=== PATIENT | male | born 1985 | race Caucasian/White ===

== ENCOUNTER → 2016-06-28 | Outpatient (CLI) | payer MEDICARE, MEDICAID ==
[~2016-06-28] MED LIST: ?ANTIBIOTIC; AC325T PO; ACET-789 PO; ALB.5NB20 INH; ALBU0.8322 IH; ALBU17AE23 IH; ALBU17AE3 IH; ALBU2.5V4 IH; ALBU2.5V52 INH; ALBU8.5H2 IH; ALBU8.5H2 INH; AMOX875T2 PO; AMOXICILLIN; AMPH20TA2 PO; ATOR20TA66 PO; ATOR40TA PO; AZIT250T PO; AZIT250T5 PO; BUDE6HFA INH; BUSP15TA60 PO; CATHETER FLUSH 10 ML SYR IV PRN; CEFD300C3 PO; CEFU250T PO; CEPH500C PO; CHLO200T9 PO; CITA40TA19 PO; CLON1TAB3 PO; DOXY100C2 PO; FAMO20TA5 PO; FENO135C4 PO; FLUT1AER IH; FLUT1BLS IH; FLUT1DIS26 IH; GUAI5SYR PO; HYDR-3454 PO; HYDR-3812 PO; HYDR-3816 PO; HYDR-3874 PO; HYDR115S2 PO; HYDR1TAB PO; HYDR25CA5 PO; IBP600T1 PO; IBP800T PO; IBUP-1773 PO; IOHEXOL 350 MG/ML 150 ML (OMNIPAQUE 350) VIAL IV ONE; LANS30CA PO; LEVO500T69 PO; LEVO500T78 PO; LEVO750T24; LEVO750T6 PO; LITH300C; LITH300C PO; LORA-794 PO; LORA0.5T PO; MELA1TAB20 PO; MELATONIN; METH4TAB PO; MUPI22OI TP; MUPI22OI2 TP; MUPI22OI29 TOP; NAPR550T PO; NS 100 ML (IVPB) BAG IV ONE; ONDAN4ODT PO; PANT40SU PO; PRD20T PO; PRD50T PO; PRED10TA; PRED5TAB PO; PROM5SYR PO; QUET200T PO; QUET200T28 PO; QUET200T57 PO; QUET300T PO; QUET50TA PO; RT-ALBUINH IH; SULF-222 PO; SULF1TAB35 PO; TRAZ-144 PO; TRAZ150T60 PO; Z PACK; ZIPR40CA12 PO; ZLP10T PO; ZYPREXA
--- OUTSIDE RECORDS SUMMARY | 2016-06-28 10:03 | XMS REPORT | Continuity of Care Document ---
Author Author [facility] Organization [facility] Address Unknown Phone Unavailable Care Team Providers Care Lime Kiln Worker Name Role Phone Self, Referral PCP Unavailable Source Comments Some departments are not documenting in the electronic medical record. If you do not see the information that you expected, contact Release of Information in the Health Information Management department at [phone] for further assistance in locating additional records.[facility] Active Allergies and Adverse Reactions Allergen Noted Date Severity Reactions Comments Bee 07/11/2012 UNKNOWN Current Medications Prescription Sig. Disp. Refills Start End Date Status Date chlorproMAZINE Take 10 mg by mouth three Active (THORAZINE) 10 mg tablet times daily. QUETIAPINE FUMARATE Take by mouth. Active (SEROQUEL PO) ZOLPIDEM TARTRATE (AMBIEN Take by mouth. Active PO) amphetamine-dextroampheta Take 10 mg by mouth every Active mine XR (ADDERALL XR) 10 morning mg capsule QUETIAPINE FUMARATE Take by mouth. Active (SEROQUEL XR PO) Active Problems Not on file Social History Tobacco Use Types Packs/Day Years Used Date Current Every Day Smoker Cigarettes 0.5 10 Tobacco Cessation: Ready to Quit: No Comments: Alcohol Use Drinks/Week oz/Week Comments Yes rare Plan of Care Health Maintenance Due Date Last Done Comments Physical (Comprehensive) 10/25/1991 Exam Pertussis Vaccine 10/25/1995 Tetanus Vaccine 2001 Influenza Vaccine 02/18/2015 Results from Last 3 Months Not on file
--- NOTE | 2016-06-28 13:22 | Diagnostic Imaging Report ---
PROCEDURE: CT angiography of the chest with contrast. TECHNIQUE: Multiple contiguous axial images were obtained through the chest after uneventful bolus administration of intravenous contrast. Reconstructed CTA MIP acquisitions were also performed. INDICATION: Chest pain, weight loss, shortness of breath, COPD, 20 years of smoking, previous heart surgery. CONTRAST: 125 mL of Omnipaque 350 was given intravenously. COMPARISON STUDY: Noncontrast CT scan of the chest from October 09. FINDINGS: No pulmonary emboli or aortic aneurysm or dissection is present. There is a normal takeoff of the great vessels from the aortic arch. 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 The heart size is normal. No abnormal adenopathy is present. The lungs are clear. There are no pulmonary nodules. No pleural effusions are present. The visualized portions of the abdomen appear unremarkable. The osseous structures demonstrate minimal degenerative changes. IMPRESSION: There are no acute findings. Dictated by: Dictated on workstation # [id number]
== END ==
LOC: RAD 10:00
PROVIDERS: ATTEND Internal Medicine Critical Care Medicine
DX: J44.9 Chronic obstructive pulmonary disease, unspecified (principal); J45.909 Unspecified asthma, uncomplicated; R06.00 Dyspnea, unspecified; G47.34 Idiopathic sleep related nonobstructive alveolar hypoventilation
CPT/HCPCS: 71275

== ENCOUNTER → 2016-07-27 | Outpatient (CLI) | payer MEDICARE, MEDICAID ==
[~2016-07-27] MED LIST changes: -CATHETER FLUSH 10 ML SYR IV PRN; -IOHEXOL 350 MG/ML 150 ML (OMNIPAQUE 350) VIAL IV ONE; -NS 100 ML (IVPB) BAG IV ONE
--- OUTSIDE RECORDS SUMMARY | 2016-07-27 09:07 | XMS REPORT | Continuity of Care Document ---
Author Author [facility] Organization [facility] Address Unknown Phone Unavailable Care Team Providers Care Director Life Insurance Name Role Phone Self, Referral PCP Unavailable Source Comments Some departments are not documenting in the electronic medical record. If you do not see the information that you expected, contact Release of Information in the Health Information Management department at [phone] for further assistance in locating additional records.[facility] Active Allergies and Adverse Reactions Allergen [...]
[2016-07-27 09:34] LABS: ABG BASE EXCESS -1.5 MMOL/L (-2.5-2.5); ABG HCO3 22 MMOL/L (23-27); ABG OXYGEN SATURATION 95 % (94-100); ABG PCO2 36 MMHG (35-45); ABG PH 7.42 (7.37-7.43); ABG PO2 67 MMHG (79-93); ABG TCO2 23.5 MMOL/L (21.0-31.0); ALLENS TEST POSITIVE; PATIENT TEMP 98.3
== END ==
LOC: RT 09:02
PROVIDERS: ATTEND Internal Medicine Critical Care Medicine
DX: J44.9 Chronic obstructive pulmonary disease, unspecified (principal); J45.909 Unspecified asthma, uncomplicated; R06.00 Dyspnea, unspecified; G47.34 Idiopathic sleep related nonobstructive alveolar hypoventilation
CPT/HCPCS: 82805

== ENCOUNTER 2016-07-29 10:00 | Outpatient (RCR) | payer MEDICARE, MEDICAID ==
--- OUTSIDE RECORDS SUMMARY | 2016-07-05 10:06 | XMS REPORT | Continuity of Care Document ---
Author Author [facility] Organization [facility] Address Unknown Phone Unavailable Care Team Providers Care Preschool Teacher Assistant Name Role Phone Self, Referral PCP Unavailable Source Comments Some departments are not documenting in the electronic medical record. If you do not see the information that you expected, contact Release of Information in the Health Information Management department at [phone] for further assistance in locating additional records.[facility] Active Allergies and Adverse Reactions Allergen Noted [...]
== END 2016-10-03 | disposition home or self-care (01) ==
LOC: PULM 10:00
PROVIDERS: ATTEND Internal Medicine Critical Care Medicine
DX: J44.9 Chronic obstructive pulmonary disease, unspecified (principal); J45.909 Unspecified asthma, uncomplicated; R06.00 Dyspnea, unspecified; G47.34 Idiopathic sleep related nonobstructive alveolar hypoventilation
CPT/HCPCS: 99211

== ENCOUNTER 2016-09-01 14:13 | Emergency (ER) | payer MEDICARE, MEDICAID ==
[~2016-09-01] VITALS: Ht 175.3 cm; Wt 82.1 kg
--- OUTSIDE RECORDS SUMMARY | 2016-09-01 14:20 | XMS REPORT | Continuity of Care Document ---
Author Author [facility] Organization [facility] Address Unknown Phone Unavailable Care Team Providers Care Charging Board Operator Name Role Phone Self, Referral PCP Unavailable Source Comments Some departments are not documenting in the electronic medical record. If you do not see the information that you expected, contact Release of Information in the Health Information Management department at [phone] for further assistance in locating additional records.[facility] Active Allergies and Adverse Reactions Allergen [...]
[2016-09-01 14:39] LABS: BASOPHILS % (AUTO) 0 % (0-10); EOSINOPHILS % (AUTO) 1 % (0-10); LYMPHOCYTES # (AUTO) 2.1 X 10^3 (1.0-4.0); LYMPHOCYTES % (AUTO) 39 % (12-44); MEAN CORPUSCULAR HEMOGLOBIN 30 PG (25-34); MEAN CORPUSCULAR HGB CONC 36 G/DL (32-36); MEAN CORPUSCULAR VOLUME 83 FL (80-99); MEAN PLATELET VOLUME 10.7 FL (7.4-10.4); MONOCYTES # (AUTO) 0.4 X 10^3 (0.0-1.0); MONOCYTES % (AUTO) 7 % (0-12); NEUTROPHILS # (AUTO) 2.8 X 10^3 (1.8-7.8); NEUTROPHILS % (AUTO) 53 % (42-75); PLATELET COUNT 178 10^3/uL (130-400); RED BLOOD COUNT 4.98 10^6/uL (4.35-5.85); RED CELL DISTRIBUTION WIDTH 13.3 % (10.0-14.5); WHITE BLOOD COUNT 5.3 10^3/uL (4.3-11.0)
[2016-09-01] MEDS ORDERED: NICOTINE 21 MG (NICODERM) PATCH TD ONE (14:45)
[2016-09-01] MEDS ORDERED: LORazepam INJ 2 MG/ML (ATIVAN) VIAL IVP ONE (14:45)
[2016-09-01] MEDS ORDERED: WATER (STERILE) FOR INJECTION 20 ML ONE (14:58)
[2016-09-01] MEDS ORDERED: ZIPRASIDONE 20 MG INJ (GEODON) VIAL IM ONE (15:00)
[2016-09-01 15:02] LABS: ALANINE AMINOTRANSFERASE 15 U/L (0-55); ALBUMIN 4.3 G/DL (3.2-4.5); ALCOHOL 200 MG/DL (<10); ANION GAP 11 MMOL/L (5-14); ASPARTATE AMINO TRANSFERASE 17 U/L (5-34); BILIRUBIN,TOTAL 0.3 MG/DL (0.1-1.0); BLOOD UREA NITROGEN 9 MG/DL (7-18); BUN/CREATININE RATIO 9; CALCIUM 10.2 MG/DL (8.5-10.1); CARBON DIOXIDE 22 MMOL/L (21-32); CHLORIDE 108 MMOL/L (98-107); CREATININE SERUM 1.05 MG/DL (0.60-1.30); GFR ESTIMATED > 60; GLUCOSE 110 MG/DL (70-105); SALICYLATE < 5.0 MG/DL (5.0-20.0); SODIUM 141 MMOL/L (135-145); TOTAL PROTEIN 6.9 G/DL (6.4-8.2)
[2016-09-01 15:06] LABS: ACETAMINOPHEN < 10 UG/ML (10-30)
[2016-09-01 15:25] VITALS: BP 0/0
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
== END 2016-09-01 15:25 | disposition left against medical advice (07) ==
LOC: EDUNIT# 14:13 → ER 14:16
DX: R45.851 Suicidal ideations (principal); F10.129 Alcohol abuse with intoxication, unspecified; F17.210 Nicotine dependence, cigarettes, uncomplicated; Y90.7 Blood alcohol level of 200-239 mg/100 ml; Z53.21 Procedure and treatment not carried out due to patient leaving prior to being seen by health care provider
CPT/HCPCS: 36415; 80053; 80320; 80329; 84443; 85025; 93005; 96372

== ENCOUNTER → 2017-09-05 | Outpatient (CLI) | payer MEDICARE, MEDICAID ==
[~2017-09-05] MED LIST changes: +ACHD5005 PO; +AZIT250T12 PO; -AZIT250T5 PO; -HYDR-3812 PO; +HYDR-3870 PO; -HYDR-3874 PO
== END ==
LOC: RAD 09:15
PROVIDERS: ATTEND Nurse Practitioner
DX: Z53.8 Procedure and treatment not carried out for other reasons (principal); S13.101A Dislocation of unspecified cervical vertebrae, initial encounter

== ENCOUNTER 2022-04-13 04:52 | Emergency (ER) | payer MEDICARE, MEDICAID ==
[~2022-04-13] VITALS: Ht 175.3 cm; Wt 77.0 kg
[~2022-04-13 04:52] MED LIST changes: +QUET200T29 PO; -QUET200T57 PO; -SULF1TAB35 PO; +SULF1TAB38 PO
[2022-04-13 05:04] VITALS: BP 139/92
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
[2022-04-13] MEDS ORDERED: KETOROLAC 60 MG/2 ML VIAL IM ONE (05:30)
== END 2022-04-13 05:32 | disposition left against medical advice (07) ==
LOC: EDUNIT# 04:52 → ER 04:56
DX: M54.2 Cervicalgia (principal); M79.601 Pain in right arm; F17.210 Nicotine dependence, cigarettes, uncomplicated; V49.50XA Passenger injured in collision with unspecified motor vehicles in traffic accident, initial encounter; Y92.410 Unspecified street and highway as the place of occurrence of the external cause
CPT/HCPCS: 99281

== ENCOUNTER 2022-07-12 16:05 | Emergency (ER) | payer MEDICARE, MEDICAID ==
[~2022-07-12] VITALS: Ht 177 cm; Wt 75.0 kg
[2022-07-12 16:24] VITALS: BP 139/89
[2022-07-12] MEDS ORDERED: RT-ALBUTEROL/IPRATROPIUM 3 ML (DUONEB) VIAL INH ONE (16:45)
[2022-07-12] MEDS ORDERED: predniSONE 20 MG TAB PO ONE (16:45)
--- NOTE | 2022-07-12 16:52 | ED General ---
General Chief Complaint: Cough/Cold/Flu Symptoms Stated Complaint: SOA - COUGH - CHILLS Nursing Triage Note: Patient has presented to ER with cc of short of breath, cough, and chills for the last 3 days. He has taken albuterol inhaler and albuterol breathing treatments for his shortness of breath. Source of Information: Patient (ESTELLEGAUDENCIO) History of Present Illness Date Seen by Provider: Jul 12, 2022 Time Seen by Provider: 04:30 Initial Comments 36yo M with h/o COPD, asthma, and PNA presents to the ED with c/o non-productive cough, nasal congestion, SOB, and chills that started 3 days ago. Pt states that he has also experienced posttussis syncopal events x3, the last episode being today prior to coming to ED. Pt states that he coughs so hard that he becomes lightheaded and "passes out"'. Pt denies head strike with syncopal events and states that he just "wakes up on the floor". Pt also notes his cough has caused associated chest wall pain and MARSHALL. Pt states that he had a nebulizer treatment prior to coming to the ED but denies relief of symptoms. Pt has 2L O2 prn that he normally uses nightly but has had to use it all day today. Pt states using the oxygen gives him some relief from his symptoms. Pt states that his son has experienced similar symptoms. Pt states that symptoms are similar to when he has had PNA. Pt denies fevers, nausea, vomiting, abd pain, diarrhea, dysuria, hematuria, or recent flu test. (GAUDENCIO MCCABE) Allergies and Home Medications Allergies Coded Allergies: No Known Drug Allergies (Unverified , 10/03/15) Patient Home Medication List Home Medication List Reviewed: Yes (GAUDENCIO MCCABE) Albuterol Sulfate (Albuterol Sulfate) 2.5 Mg/3 Ml Vial.neb, 2.5 MG IH Q4H PRN for SHORTNESS OF BREATH, (Reported) Entered as Reported by: THERESA GONZALES on 10/03/15 1046 Albuterol Sulfate (Ventolin Hfa) 18 Gm Hfa.aer.ad, 2 PUFF IH Q4H PRN for SHORTNESS OF BREATH, (Reported) Entered as Reported by: THERESA GONZALES on 10/03/15 1046 Atorvastatin Calcium (Atorvastatin Calcium) 20 Mg Tablet, 20 MG PO HS, (Reported) Entered as Reported by: THERESA GONZALES on 10/03/15 1033 Azithromycin (Azithromycin) 250 Mg Tablet, 250 MG PO DAILY Prescribed by: MONICA MIGUEL on 10/06/15 1154 Azithromycin (Zithromax) 250 Mg Tablet, 250 MG PO DAILY Prescribed by: SHANE RATLIFF on 06/15/16 165 Buspirone HCl (Buspirone HCl) 15 Mg Tablet, 15 MG PO TID PRN for ANXIETY, (Reported) Entered as Reported by: THERESA GONZALES on 10/03/15 1033 Cefdinir (Cefdinir) 300 Mg Capsule, 300 MG PO BID Prescribed by: TYRELL MENDEZ on 10/08/15 1228 Cefuroxime Axetil (Ceftin) 250 Mg Tablet, 250 MG PO BID, (Reported) Entered as Reported by: THERESA GONZALES on 10/03/15 1046 Famotidine (Famotidine) 20 Mg Tablet, 20 MG PO BID, (Reported) Entered as Reported by: THERESA GONZALES on 10/03/15 103 Fluticasone/Vilanterol (Breo Ellipta 100-25 Mcg INH) 1 Each Blst.w.dev, 1 PUFF IH DAILY, (Reported) Entered as Reported by: THERESA GONZALES on 10/03/15 1033 Guaifenesin/Dextromethorphan (Guaifenesin Dm Syrup) 5 Ml Syrup, 5-10 ML PO Q4H PRN for COUGH Prescribed by: SHANE RATLIFF on 06/15/16 165 Prednisone (Prednisone) 20 Mg Tab, 40 MG PO DAILY, (Reported) Entered as Reported by: THERESA GONZALES on 10/03/15 1046 Prednisone (Prednisone) 5 Mg Tablet, 5 MG PO UD Prescribed by: TYRELL MENDEZ on 10/08/15 1228 Quetiapine Fumarate (Quetiapine Fumarate) 200 Mg Tablet, 200 MG PO HS, (Reported) Entered as Reported by: THERESA GONZALES on 10/03/15 1033 Trazodone HCl (Oleptro ER) 150 Mg Tab.er.24h, 150 MG PO HS, (Reported) Entered as Reported by: THERESA GONZALES on 10/03/15 1033 Review of Systems Review of Systems Constitutional: chills; No fever EENTM: nose congestion; No eye pain Respiratory: cough, short of breath, wheezing Cardiovascular: chest pain ( secondary to cough), syncope (posttussis ) Gastrointestinal: No abdominal pain, No diarrhea, No nausea, No vomiting Genitourinary: No dysuria, No hematuria Musculoskeletal: no symptoms reported Skin: no symptoms reported Psychiatric/Neurological: No Symptoms Reported Hematologic/Lymphatic: No Symptoms Reported Immunological/Allergic: no symptoms reported (GAUDENCIO MCCABE) Past Bftubny-Dwjhqy-Dotmrq Hx Patient Social History Tobacco Use?: Yes Tobacco type used: Cigarettes Smoking Status: Current Everyday Smoker Use of E-Cig and/or Vaping dev: No Substance use?: No Alcohol Use?: No (h/o alcoholism ) Pt feels they are or have been: Unable to obtain (GAUDENCIO MCCABE) Immunizations Up To Date Tetanus Booster (TDap): Less than 5yrs PED Vaccines UTD: Yes (GAUDENCIO MCCABE) Seasonal Allergies Seasonal Allergies: No (GAUDENCIO MCCABE) Past Medical History Surgeries: Yes ("OPEN HEART SURGERY IN INFANCY") Cardiac, Vasectomy Respiratory: Yes Asthma, Pneumonia, COPD Currently Using CPAP: No Currently Using BIPAP: No Cardiac: Yes Congenital Heart Disease, High Cholesterol Neurological: No Reproductive Disorders: No Sexually Transmitted Disease: No HIV/AIDS: No Genitourinary: No Gastrointestinal: No Musculoskeletal: No Endocrine: No HEENT: No Loss of Vision: Bilateral Hearing Impairment: Denies Cancer: No Psychosocial: Yes ADD/ADHD, Sleep Difficulties, Anxiety, Bipolar, Violent Behavior Integumentary: No Adverse Reaction/Blood Tranf: No (GAUDENCIO MCCABE) Family Medical History Alcoholism 19 FATHER G8 BROTHER Cardiovascular disease 19 MOTHER Hypercholesterolemia 19 FATHER 19 MOTHER G8 BROTHER Hypertension 19 FATHER SOCIAL HISTORY: -SMOKES 1 PPD -ETOH--HISTORY OF ABUSE, CLAIMS NOW THAT HE DRINKS "3-4 TMIES A WEEK"-PER PT ON -DRUGS--HX OF METH, COCAINE, THC USE. DENIES IV USE. CLAIMS NO RECENT USE PER PT ON 04/13/22 EXTENSIVE PSYCH HISTORY : -MULTIPLE PSYCH ADMITS -HISTORY OF SUICIDAL AND HOMICIDAL IDEATIONS. NO SUICIDE ATTEMPT -PT STATES HE HAS "CHRONIC EXPLOSIVE DISORDER" -EXTENSIVE HISTORY OF POLYSUBSTANCE ABUSE, INCLUDING METH, COCAINE, THC, AND ALCOHOL. MULTIPLE ER VISITS HAS BEEN IN AND OUT OF [facility] MULTIPLE TIMES, WELL NURSING HOME HAS HAD MULTIPLE PSYCH ADMITS HISTORY OF SEVERE NON-COMPLIANCE WITH MEDICATIONS, LIFESTYLE CHANGES AND FOLLOW UP APPOINTMENTS (GAUDENCIO MCCABE) Physical Exam Vital Signs Vital Signs - First Documented 07/12/22 07/12/22 16:24 17:02 Temp 36.4 Pulse 106 Resp 24 B/P (MAP) 139/89 (106) Pulse Ox 96 O2 Delivery Room Air O2 Flow Rate 6.00 (LEXUS COSTELLO DO) Vital Signs Capillary Refill : (GAUDENCIO MCCABE) Height, Weight, BMI Height: 5'9" Weight: 181lbs. 0.0oz. 82.815243sq; 23.00 BMI Method:Stated General Appearance: No Apparent Distress, Other (dramatically shaking and coughing with whole body and making audible grunting/wheezing noises ) HEENT: PERRL/EOMI, Moist Mucous Membranes Respiratory: No Respiratory Distress, Wheezing (diffuse inspiratory and expiratory ), Other (loud exaggerated grunting/wheezing and shallow breathing when examined) Cardiovascular: Regular Rate, Rhythm, No Murmur Gastrointestinal: Non Tender, Soft Back: Other (some tenderness over mid thoracic paraspinal musculature) Extremity: No Calf Tenderness, No Pedal Edema Neurologic/Psychiatric: Alert, Oriented x3 Skin: Normal Color, Warm/Dry (GAUDENCIO MCCABE) Progress/Results/Core Measures Suspected Sepsis SIRS Temperature: Pulse: 106 Respiratory Rate: 24 Blood Pressure 139 /89 Mean: 106 (GAUDENCIO MCCABE) Results/Orders Lab Results Laboratory Tests Test 07/12/22 16:52 Range/Units Influenza Type A (RT-PCR) Not Detected Not Detecte Influenza Type B (RT-PCR) Not Detected Not Detecte SARS-CoV-2 RNA (RT-PCR) Not Detected Not Detecte (LEXUS COSTELLO DO) My Orders Orders - LEXUS COSTELLO DO Albuterol/Ipra Inhalation Soln (Duoneb I (07/12/22 16:45) Prednisone Tablet (Deltasone Tablet) (07/12/22 16:45) Svn Small Volume Nebulizer (07/12/22 16:39) Covid 19 Inhouse Test (07/12/22 16:39) Chest Pa/Lat (2 View) (07/12/22 16:39) Influenza A And B By Pcr (07/12/22 16:39) (LEXUS COSTELLO DO) Medications Given in ED Current Medications Medications Dose Ordered Sig/King Route Start Time Stop Time Status Last Admin Dose Admin Albuterol/ Ipratropium 3 ml ONCE ONCE INH 07/12/22 16:45 07/12/22 16:46 DC 07/12/22 16:49 3 ML Prednisone 50 mg ONCE ONCE PO 07/12/22 16:45 07/12/22 16:46 DC 07/12/22 16:49 50 MG (LEXUS COSTELLO DO) Vital Signs/I&O 07/12/22 07/12/22 16:24 17:02 Temp 36.4 Pulse 106 Resp 24 B/P (MAP) 139/89 (106) Pulse Ox 96 96 O2 Delivery Room Air T Piece O2 Flow Rate 6.00 (LEXUS COSTELLO DO) Vital Signs/I&O Capillary Refill : (GAUDENCIO MCCABE) Blood Pressure Mean: 106 Departure Communication (Admissions) radiology came to look for patient for CXR. He had apparently eloped. His covid and flu are negative. O2 was stable the entirety of his stay on room air. I was unable to relay any test results to him. (LEXUS COSTELLO DO) Departure-Patient Inst. Referrals: [facility] (PCP/Family) Primary Care Physician GAUDENCIO MCCABE Jul 12, 2022 16:52 LEXUS COSTELLO DO Jul 12, 2022 17:49
[2022-07-13] MEDS ORDERED: PRD20T PO (11:54)
== END 2022-07-12 18:05 | disposition left against medical advice (07) ==
LOC: EDUNIT# 16:05 → ER 16:06
DX: R05.9 Cough, unspecified (principal); R06.2 Wheezing; M54.6 Pain in thoracic spine; R06.02 Shortness of breath; R09.81 Nasal congestion; F17.210 Nicotine dependence, cigarettes, uncomplicated; Z20.822 Contact with and (suspected) exposure to COVID-19
CPT/HCPCS: 87636; 94640

== ENCOUNTER 2022-07-13 10:02 | Emergency (ER) | payer MEDICARE, MEDICAID ==
[~2022-07-13] VITALS: Ht 177 cm; Wt 75.0 kg
--- NOTE | 2022-07-13 11:17 | ED Respiratory ---
General Chief Complaint: Respiratory Problems Stated Complaint: SOB Nursing Triage Note: PT BY [facility] FROM [facility] WITH CC OF SOB, HX OF ASTHMA AND COPD, WAS HERE YESTERDAY BUT LEFT BECAUSE STAFF WAS RUDE. SS FOR 4 DAYS, ALBUTEROL AT HOME AND DUO NEB BY EMS, 98% ON RA AT TRIAGE, PLACED 2 LPM FOR COMFORT AND WILL MONITOR. STATES O2 PRN AT HOME Source: patient, EMS Exam Limitations: no limitations History of Present Illness Date Seen by Provider: Jul 13, 2022 Time Seen by Provider: 11:05 Initial Comments History provided by patient and EMS. Patient is a 36-year-old male with a past medical history of asthma and COPD who presents to the emergency department via EMS from [facility] walk-in clinic for increased work of breathing and cough. Patient states he has had the symptoms for 4 days. Patient has been using nebulized albuterol treatments at home with minimal improvement. EMS state patient did have wheezing but did not require oxygen. He was given a DuoNeb in route by EMS with significant improvement in symptoms. States he has had a mildly productive cough. States he has had subjective fever but has not formally checked it. Patient's son also has respiratory symptoms at this time. Patient also endorses some nasal congestion. Patient states he does have oxygen at home to use as needed. Patient does currently smoke. States he takes no medicines outside of his albuterol as needed. Allergies and Home Medications Allergies Coded Allergies: No Known Drug Allergies (Unverified , 10/03/15) Patient Home Medication List Home Medication List Reviewed: Yes Albuterol Sulfate (Albuterol Sulfate) 2.5 Mg/3 Ml Vial.neb, 2.5 MG IH Q4H PRN for SHORTNESS OF BREATH, (Reported) Entered as Reported by: THERESA GONZALES on 10/03/15 1046 Albuterol Sulfate (Ventolin Hfa) 18 Gm Hfa.aer.ad, 2 PUFF IH Q4H PRN for SHORTNESS OF BREATH, (Reported) Entered as Reported by: THERESA GONZALES on 10/03/15 1046 Atorvastatin Calcium (Atorvastatin Calcium) 20 Mg Tablet, 20 MG PO HS, (Reported) Entered as Reported by: THERESA GONZALES on 10/03/15 1033 Azithromycin (Azithromycin) 250 Mg Tablet, 250 MG PO DAILY Prescribed by: MONICA MIGUEL on 10/06/15 1154 Azithromycin (Zithromax) 250 Mg Tablet, 250 MG PO DAILY Prescribed by: SHANE RATLIFF on 06/15/16 1651 Buspirone HCl (Buspirone HCl) 15 Mg Tablet, 15 MG PO TID PRN for ANXIETY, (R eported) Entered as Reported by: THERESA GONZALES on 10/03/15 1033 Cefdinir (Cefdinir) 300 Mg Capsule, 300 MG PO BID Prescribed by: TYRELL MENDEZ on 10/08/15 1228 Cefuroxime Axetil (Ceftin) 250 Mg Tablet, 250 MG PO BID, (Reported) Entered as Reported by: THERESA GONZALES on 10/03/15 1046 Famotidine (Famotidine) 20 Mg Tablet, 20 MG PO BID, (Reported) Entered as Reported by: THERESA GONZALES on 10/03/15 1033 Fluticasone/Vilanterol (Breo Ellipta 100-25 Mcg INH) 1 Each Blst.w.dev, 1 PUFF IH DAILY, (Reported) Entered as Reported by: THERESA GONZALES on 10/03/15 1033 Guaifenesin/Dextromethorphan (Guaifenesin Dm Syrup) 5 Ml Syrup, 5-10 ML PO Q4H PRN for COUGH Prescribed by: SHANE RATLIFF on 06/15/16 1651 Prednisone (Prednisone) 20 Mg Tab, 40 MG PO DAILY, (Reported) Entered as Reported by: THERESA GONZALES on 10/03/15 1046 Prednisone (Prednisone) 5 Mg Tablet, 5 MG PO UD Prescribed by: TYRELL MNEDEZ on 10/08/15 1228 Quetiapine Fumarate (Quetiapine Fumarate) 200 Mg Tablet, 200 MG PO HS, (Reported) Entered as Reported by: THERESA GONZALES on 10/03/15 1033 Trazodone HCl (Oleptro ER) 150 Mg Tab.er.24h, 150 MG PO HS, (Reported) Entered as Reported by: THERESA GONZALES on 10/03/15 1033 Review of Systems Review of Systems Constitutional: no symptoms reported EENTM: see HPI, nose congestion Respiratory: see HPI, cough Cardiovascular: no symptoms reported Gastrointestinal: no symptoms reported Genitourinary: no symptoms reported Musculoskeletal: no symptoms reported Skin: no symptoms reported Psychiatric/Neurological: No Symptoms Reported Hematologic/Lymphatic: No Symptoms Reported Immunological/Allergic: no symptoms reported Past Vzlbnzh-Xmajed-Ugqtar Hx Patient Social History Tobacco Use?: Yes Tobacco type used: Cigarettes Substance use?: No Alcohol Use?: No Immunizations Up To Date Tetanus Booster (TDap): Less than 5yrs PED Vaccines UTD: Yes Second COVID19 Vaccination [place]: YES Seasonal Allergies Seasonal Allergies: No Past Medical History Surgery/Hospitalization HX: ASTHMA, COPD, VASECTOMY, HEART SURGERY A CHILD, HX OF PULMONARY REHAB Surgeries: Yes ("OPEN HEART SURGERY IN INFANCY") Cardiac, Vasectomy Respiratory: Yes Asthma, Pneumonia, COPD Currently Using CPAP: No Currently Using BIPAP: No Cardiac: Yes Congenital Heart Disease, High Cholesterol Neurological: No Reproductive Disorders: No Sexually Transmitted Disease: No HIV/AIDS: No Genitourinary: No Gastrointestinal: No Musculoskeletal: No Endocrine: No HEENT: No Loss of Vision: Bilateral Hearing Impairment: Denies Cancer: No Psychosocial: Yes ADD/ADHD, Sleep Difficulties, Anxiety, Bipolar, Violent Behavior Integumentary: No Adverse Reaction/Blood Tranf: No Family Medical History Alcoholism 19 FATHER G8 BROTHER Cardiovascular disease 19 MOTHER Hypercholesterolemia 19 FATHER 19 MOTHER G8 BROTHER Hypertension 19 FATHER SOCIAL HISTORY: -SMOKES 1 PPD -ETOH--HISTORY OF ABUSE, CLAIMS NOW THAT HE DRINKS "3-4 TMIES A WEEK"-PER PT ON -DRUGS--HX OF METH, COCAINE, THC USE. DENIES IV USE. CLAIMS NO RECENT USE PER PT ON 04/13/22 EXTENSIVE PSYCH HISTORY : -MULTIPLE PSYCH ADMITS -HISTORY OF SUICIDAL AND HOMICIDAL IDEATIONS. NO SUICIDE ATTEMPT -PT STATES HE HAS "CHRONIC EXPLOSIVE DISORDER" -EXTENSIVE HISTORY OF POLYSUBSTANCE ABUSE, INCLUDING METH, COCAINE, THC, AND ALCOHOL. MULTIPLE ER VISITS HAS BEEN IN AND OUT OF [facility] MULTIPLE TIMES, WELL INTERMEDIATE HAS HAD MULTIPLE PSYCH ADMITS HISTORY OF SEVERE NON-COMPLIANCE WITH MEDICATIONS, LIFESTYLE CHANGES AND FOLLOW UP APPOINTMENTS Physical Exam Vital Signs - First Documented 07/13/22 10:06 Temp 36.4 Pulse 90 Resp 24 B/P (MAP) 122/92 (102) Pulse Ox 98 O2 Delivery Nasal Cannula O2 Flow Rate 2.00 Capillary Refill : Less Than 3 Seconds Height: 5'9" Weight: 181lbs. 0.0oz. 82.850838td; 23.00 BMI Method:Stated General Appearance: WD/WN, no apparent distress HEENT: PERRL/EOMI, normal ENT inspection, TMs normal, pharynx normal Neck: non-tender, full range of motion, supple, normal inspection Respiratory: chest non-tender, no respiratory distress, no accessory muscle use, wheezing, expiration Cardiovascular: regular rate, rhythm Gastrointestinal: normal bowel sounds, non tender, soft, no organomegaly, no pulsatile mass Extremities: normal range of motion, non-tender, normal inspection, no pedal edema, no calf tenderness Neurologic/Psychiatric: no motor/sensory deficits, alert, normal mood/affect, oriented x 3 Skin: normal color, warm/dry Progress/Results/Core Measures Suspected Sepsis SIRS Temperature: Pulse: 90 Respiratory Rate: 24 Blood Pressure 122 /92 Mean: 102 Results/Orders My Orders Orders - TERESA MEYERS APRN Chest Pa/Lat (2 View) (07/13/22 11:12) Prednisone Tablet (Deltasone Tablet) (07/13/22 12:00) Vital Signs/I&O 07/13/22 10:06 Temp 36.4 Pulse 90 Resp 24 B/P (MAP) 122/92 (102) Pulse Ox 98 O2 Delivery Nasal Cannula O2 Flow Rate 2.00 Capillary Refill : Less Than 3 Seconds Blood Pressure Mean: 102 Progress Note : Progress Note Patient was seen in this emergency department yesterday for evaluation of similar symptoms. He eloped prior to completion of medical treatment. Patient did have a negative COVID and flu test yesterday. Chest x-ray was ordered but was unable to be obtained prior to the patient eloping. Patient is nontoxic and well-hydrated on exam. Vital signs are reassuring without hypoxia on room air. Patient is able to speak in full sentences. He states he feels much better after the breathing treatment given to him by the EMS crew. He does have some very mild expiratory wheezing in the lower lobes. No tachypnea or accessory muscle use noted. Patient has moist mucous membranes and brisk cap refill no clinical evidence of marked dehydration. He denies any chest pain at the time of my exam. Orders placed for chest x-ray and oral prednisone. Differential diagnosis includes pneumonia, viral respiratory illness, asthma/COPD exacerbation. Chest x-ray noted to be acutely negative on my wet read. Formal radiology report agrees that there are no acute findings. Specifically there are no evidence of infiltrate suspicious for bacterial pneumonia. Patient continues to state he feels much better. Patient given 40 mg oral prednisone in the emergency department and will be discharged home with an additional 4 days of the same. Follow-up with PCP. Return precautions for urgent symptomology discussed. Patient verbalized understanding. Departure Impression Primary Impression: Asthma exacerbation Qualified Codes: J45.901 - Unspecified asthma with (acute) exacerbation Additional Impression: URI (upper respiratory infection) Qualified Codes: J06.9 - Acute upper respiratory infection, unspecified Disposition: HOME, SELF-CARE Condition: Stable Departure-Patient Inst. Decision time for Depature: 11:50 Referrals: [facility] [place] ([place]) Primary Care Physician Patient Instructions: Asthma, Adult (DC) Scripts Prednisone (Prednisone) 20 Mg Tab 40 MG PO DAILY for 4 Days, #8 TAB 0 Refills Prov: TERESA MEYERS APRN 07/13/22 TERESA MEYERS [employer]IC[employer]PER [employer] Jul 13, 2022 11:17
--- NOTE | 2022-07-13 11:44 | Diagnostic Imaging Report ---
INDICATION: Shortness of breath, asthma, COPD. COMPARISON: 06/16/2016. FINDINGS: There is air trapping and COPD chronic but no failure, effusion or pneumothorax. IMPRESSION: Chronic findings. No acute abnormality. Dictated by: Dictated on workstation # [id number]
[2022-07-13] MEDS ORDERED: PRD20T PO (11:54)
[2022-07-13 12:00] VITALS: BP 148/83
[2022-07-13] MEDS ORDERED: predniSONE 20 MG TAB PO ONE (12:00)
== END 2022-07-13 11:59 | disposition home or self-care (01) ==
LOC: EDUNIT# 10:02 → ER 10:04
DX: J45.901 Unspecified asthma with (acute) exacerbation (principal); J06.9 Acute upper respiratory infection, unspecified; F17.210 Nicotine dependence, cigarettes, uncomplicated
CPT/HCPCS: 71046

== ENCOUNTER 2022-11-03 14:25 | Emergency (ER) | payer MEDICARE, MEDICAID ==
[~2022-11-03] VITALS: Ht 177 cm; Wt 75.0 kg
[2022-11-03] MEDS ORDERED: HYDROcodone/APAP 7.5 MG/325 MG (LORTAB, LORCET PLUS) TABLET PO STA (14:47)
[2022-11-03] MEDS ORDERED: CEPHALEXIN 250 MG (KEFLEX) CAP PO STA (14:47)
[2022-11-03] MEDS ORDERED: SULF-221 PO (14:52)
[2022-11-03] MEDS ORDERED: ACHD5005 PO (14:52)
[2022-11-03] MEDS ORDERED: CEPH500T PO (14:52)
[2022-11-03] MEDS ORDERED: BACI28.4 TP (14:52)
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
[2022-11-03 15:00] VITALS: BP 142/97
== END 2022-11-03 15:00 | disposition home or self-care (01) ==
LOC: EDUNIT# 14:25 → ER 14:27
DX: T24.212A Burn of second degree of left thigh, initial encounter (principal); L03.116 Cellulitis of left lower limb; F17.210 Nicotine dependence, cigarettes, uncomplicated; X19.XXXA Contact with other heat and hot substances, initial encounter; W22.8XXA Striking against or struck by other objects, initial encounter
CPT/HCPCS: 99283